=== PATIENT | female | born 1970 | race Caucasian/White ===

== ENCOUNTER 2019-08-11 13:21 | Outpatient (CLI) | payer OTHER, SELFPAY ==
--- NOTE | ~2019-08-11 | XR_ITS ---
EXAMINATION:XR cervical spine 4-5V DATE: 08/11/2019 13:55 INDICATION: Left arm tingling TECHNIQUE: AP, lateral, lateral swimmers and odontoid views of the cervical spine are provided. COMPARISON: 08/12/2007 FINDINGS: There is straightening of the cervical spine which can be positional or due to muscular spa sm. Alignment is normal. The odontoid is intact. No fracture is identified. The vertebral body height s are normal. There is unchanged mild loss of intervertebral disc space height at C5-6. Prevertebral soft tissues are normal. Small degenerative osteophytes project from the anterior endplates of multip le vertebral bodies. Ventriculoperitoneal shunt catheter tubing is noted on the left. IMPRESSION: 1. Mild cervical spondylosis without acute findings or significant interval change. Reviewed, dictated and finalized at location A. IMPRESSION: 1. Mild cervical spondylosis without acute findings or significant interval moo nge.
== END 2019-08-11 13:22 | disposition home or self-care (01) ==
PROVIDERS: PCP Physician Assistant; Visit Provider Physician Assistant
DX: M54.12 Radiculopathy, cervical region (principal); M47.812 Spondylosis without myelopathy or radiculopathy, cervical region
CPT/HCPCS: 72050

== ENCOUNTER 2019-10-14 13:59 | Outpatient (CLI) | payer OTHER, SELFPAY ==
--- NOTE | 2019-10-15 11:48 | WPDPFTINT ---
PFT Interpretation PFT Interpretation: This PFT met all criteria for ATS standards and reproducibility FEV/FVC post bronchodilator 83% of predicted FEV1 99% or 2.46 liters FVC 92% or 2.97 liters TLC 89% or 4.29 liters RV 74% RV/TLC 29% DLCO 58% when adjusted for alveolar volume but not adjusted for hemoglobin Flow volume loops wer normal Impression: No significant obstruction or restriction is present. Moderately decreased diffusion capacity is present. In the absence of anemia or pulmonary hypertension, intrinsic lung disease may still be present. Clinical and radiographic correlation is advised
== END 2019-10-14 14:00 | disposition home or self-care (01) ==
PROVIDERS: PCP Physician Assistant; Visit Provider Physician Assistant
DX: R06.09 Other forms of dyspnea (principal)
CPT/HCPCS: 94060; 94726; 94729

== ENCOUNTER → 2019-11-02 12:30 | Outpatient (CLI) | payer OTHER, SELFPAY ==
--- NOTE | ~2019-11-02 | CT_ITS ---
EXAMINATION: CT chest wo con DATE: 11/02/2019 13:04 INDICATION: Dyspnea and cough TECHNIQUE: Computed tomography (CT) of the chest was performed without intravenous contrast. The dose -length product was 609.35 mGy-cm. Automated exposure control and iterative reconstruction technique were employed. COMPARISON: CT dated 10/08/2004 FINDINGS: Lung bases are unremarkable. No significant pleural or pericardial effusion. Borderline hea rt size. Mildly enlarged right paratracheal lymph node measuring 12 mm, image 34. No evidence for tho racic aortic aneurysm. Small hiatal hernia. No focal airspace consolidation. There is a 3 mm fissural nodule, image 49. 2 mm left upper lobe nodule. 3 mm right middle lobe nodule, image 51 no endobronch ial lesions. IMPRESSION: 1. Small pulmonary nodules measuring 3 mm or less, likely benign. Twelve-month follow-up low dose CT chest recommended. 2: Mild mediastinal lymphadenopathy, likely reactive. Reviewed, dictated and finalized at location B.
== END ==
PROVIDERS: PCP Physician Assistant; Visit Provider Physician Assistant
DX: R06.00 Dyspnea, unspecified (principal); R91.8 Other nonspecific abnormal finding of lung field
CPT/HCPCS: 71250

== ENCOUNTER 2019-11-10 08:11 | Outpatient (CLI) | payer OTHER, SELFPAY ==
--- NOTE | 2019-11-10 11:00 | NEURO_ITS ---
Patient Number: [id number] Impression: # Complains of numbness of hands. # Normal nerve conduction study. # Normal needle/EMG exam. # Clinical correlation recommended. Nerve Conduction Studies Anti Sensory Summary Table Stim Site NR Peak (ms) P-T Amp (?V) Site1 Site2 Delta-P (ms) Dist (cm) Arturo (m/s) Left Median Anti Sensory (2-3nd Digit) Wrist 2.8 85.6 Wrist 2-3nd Digit 2.8 14.0 50 Wrist 2.7 68.5 Wrist 2-3nd Digit 2.8 14.0 50 Right Median Anti Sensory (2-3nd Digit) Wrist 2.8 59.7 Wrist 2-3nd Digit 2.8 14.0 50 Wrist 2.7 70.3 Wrist 2-3nd Digit 2.8 14.0 50 Left Radial Anti Sensory (Base 1st Digit) Wrist 2.0 25.4 Wrist Base 1st Digit 2.0 0.0 Right Radial Anti Sensory (Base 1st Digit) Wrist 2.2 29.7 Wrist Base 1st Digit 2.2 0.0 Left Ulnar Anti Sensory (5th Digit) Wrist 2.4 69.3 Wrist 5th Digit 2.4 14.0 58 Right Ulnar Anti Sensory (5th Digit) Wrist 2.4 68.8 Wrist 5th Digit 2.4 14.0 58 Motor Summary Table Stim Site NR Onset (ms) O-P Amp (mV) Site1 Site2 Delta-0 (ms) Dist (cm) Arturo (m/s) Left Median Motor (Abd Poll Brev) Wrist 2.7 6.0 Elbow Wrist 4.6 26.0 57 Elbow 7.3 1.6 Right Median Motor (Abd Poll Brev) Wrist 3.0 5.0 Elbow Wrist 4.7 28.0 60 Elbow 7.7 1.6 Left Ulnar Motor (Abd Dig Minimi) Wrist 2.3 5.4 A Elbow Wrist 4.7 27.0 57 A Elbow 7.0 4.2 Right Ulnar Motor (Abd Dig Minimi) Wrist 2.7 2.9 A Elbow Wrist 4.7 28.0 60 A Elbow 7.4 2.4 F Wave Studies NR F-Lat (ms) L-R F-Lat (ms) Left Median (Mrkrs) (Abd Poll Brev) 26.54 1.06 Right Median (Mrkrs) (Abd Poll Brev) 27.60 1.06 Left Ulnar (Mrkrs) (Abd Dig Min) 26.95 0.70 Right Ulnar (Mrkrs) (Abd Dig Min) 27.66 0.70 EMG Side Muscle Nerve Root Ins Act Fibs Amp Dur Recrt Comment Right 1stDorInt Ulnar C8-T1 Nml Nml Nml Nml Nml Right Ext Indicis Radial (Post Int) C7-8 Nml Nml Nml Nml Nml Right Ext Digitorum Radial (Post Int) C7-8 Nml Nml Nml Nml Nml Right BrachioRad Radial C5-6 Nml Nml Nml Nml Nml Right PronatorTeres Median C6-7 Nml Nml Nml Nml Nml Right Abd Poll Brev Median C8-T1 Nml Nml Nml Nml Nml Left 1stDorInt Ulnar C8-T1 Nml Nml Nml Nml Nml Left Ext Indicis Radial (Post Int) C7-8 Nml Nml Nml Nml Nml Left Ext Digitorum Radial (Post Int) C7-8 Nml Nml Nml Nml Nml Left BrachioRad Radial C5-6 Nml Nml Nml Nml Nml Left PronatorTeres Median C6-7 Nml Nml Nml Nml Nml Left Abd Poll Brev Median C8-T1 Nml Nml Nml Nml Nml MTDD
== END 2019-11-10 08:12 | disposition home or self-care (01) ==
LOC: ANHNEURO 08:14
PROVIDERS: PCP Physician Assistant; Visit Provider Physician Assistant
DX: M54.12 Radiculopathy, cervical region (principal)
CPT/HCPCS: 95886; 95911